=== PATIENT | male | born 1975 | race Caucasian/White ===

== ENCOUNTER 2016-10-28 15:31 | Inpatient (IN) | payer MEDICAID, OTHER ==
[2016-10-28] MEDS ORDERED: Acetaminophen/HYDROcodone 325-5 MG Tab PO PRN ×2 (15:51→16:59)
[2016-10-28] MEDS: Sodium Chloride 0.9% 1,000 ML IV SCH (17:39)
[2016-10-28] MEDS: Vancomycin 1 GM, Vancomycin 250 MG in Sodium Chloride 0.9% 250 ML IV SCH (17:39)
[2016-10-29] MEDS: Sodium Chloride 0.9% 1,000 ML IV SCH (03:41)
[2016-10-29] MEDS: Vancomycin 1 GM, Vancomycin 250 MG in Sodium Chloride 0.9% 250 ML IV SCH (06:16)
[2016-10-29] MEDS ORDERED: Enoxaparin 40 MG/0.4 ML Syringe SUBCUT SCH (09:00)
[2016-10-29 09:15] VITALS: BP 107/57
--- NOTE | 2016-10-29 09:56 | PCM.PN ---
- General Info Date of Service: 10/29/16 Admission Dx/Problem (Free Text): pt with infection abdominal wall with cellulitis and suspect MRSA cultures pending and rapid screening for mrsa pending pt has a good response to Vancao and request discharge plan discharge with out patient IV Vanco q 12 hrs. to be dosed by pharmacey instructed pt in friend in wound packing with 1/4 inch Nugauze follow up on Wednesday give vicodine for pain Functional Status: Reports: pain controlled - Review of Systems Skin: Reports: other (pain improved ) - Patient Data Vitals - most recent: Last Vital Signs Temp 98.1 F 10/29/16 09:00 Pulse 84 10/29/16 09:00 Resp 12 10/29/16 09:00 BP 107/57 L 10/29/16 09:00 Pulse Ox 98 10/29/16 09:00 Weight - most recent: 82.236 kg I&O - last 24 hours: Intake & Output 10/28/16 10/29/16 10/29/16 23:59 07:59 15:59 Intake Total 240 1490 Output Total 500 Balance 240 990 Lab Results last 24 hrs: Laboratory Results - last 24 hr 10/28/16 10/28/16 10/29/16 Range/Units 16:30 16:30 06:28 WBC 11.06 H 8.52 (4.23-9.07) K/mm3 RBC 5.24 5.02 (4.63-6.08) M/mm3 Hgb 15.2 14.5 (13.7-17.5) gm/L Hct 46.3 45.1 (40.1-51.0) % MCV 88.4 89.8 (79.0-92.2) fl MCH 29.0 28.9 (25.7-32.2) pg MCHC 32.8 32.2 (32.2-35.5) g/dl RDW Std Deviation 44.4 H 46.1 H (35.1-43.9) fL Plt Count 266 244 (163-337) K/mm3 MPV 9.8 10.0 (9.4-12.3) fl Neut % (Auto) 68.6 H (34.0-67.9) % Lymph % (Auto) 19.3 L (21.8-53.1) % [place] % (Auto) 10.3 (5.3-12.2) % Eos % (Auto) 1.2 (0.8-7.0) Baso % (Auto) 0.4 (0.1-1.2) % Neut # (Auto) 7.60 H (1.78-5.38) K/mm3 Lymph # (Auto) 2.13 (1.32-3.57) K/mm3 [place] # (Auto) 1.14 H (0.30-0.82) K/mm3 Eos # (Auto) 0.13 (0.04-0.54) K/mm3 Baso # (Auto) 0.04 (0.01-0.08) K/mm3 Sodium 139 (136-145) mEq/L Potassium 3.7 (3.5-5.1) mEq/L Chloride 103 (98-107) mEq/L Carbon Dioxide 23 (21-32) mEq/L Anion Gap 16.7 H (5-15) BUN 15 (7-18) mg/dL Creatinine 1.3 (0.7-1.3) mg/dL Est Cr Clr Drug Dosing 74.02 mL/min Estimated GFR (MDRD) > 60 (>60) mL/min BUN/Creatinine Ratio 11.5 L (14-18) Glucose 145 H (74-106) mg/dL Calcium 8.7 (8.5-10.1) mg/dL Total Bilirubin 0.2 (0.2-1.0) mg/dL AST 10 L (15-37) U/L ALT 21 (16-63) U/L Alkaline Phosphatase 68 (46-116) U/L Total Protein 7.6 (6.4-8.2) g/dl Albumin 3.8 (3.4-5.0) g/dl Globulin 3.8 gm/dL Albumin/Globulin Ratio 1.0 (1-2) Med Orders - Current: Current Medications Hydrocodone Bitart/Acetaminophen ([place] 325-5 Mg) 1 tab PO QID PRN PRN Reason: Pain Last Admin: 10/28/16 20:23 Dose: 1 tab Enoxaparin Sodium (Lovenox) 40 mg SUBCUT DAILY JESSE Last Admin: 10/29/16 08:36 Dose: Not Given Sodium Chloride (Normal Saline) 1,000 mls @ 100 mls/hr IV ASDIRECTED [facility] Last Admin: 10/29/16 03:41 Dose: 100 mls/hr Vancomycin HCl 1 gm/Vancomycin HCl 250 mg/ Sodium Chloride 250 mls @ 166 mls/ hr IV Q12H [facility] Last Admin: 10/29/16 06:16 Dose: 166 mls/hr Vancomycin HCl (Pharmacy To Dose - Vancomycin) 0 dose .XX ASDIRECTED PRN PRN Reason: RX TO DOSE VANCOMYCIN Discontinued Medications Hydrocodone Bitart/Acetaminophen ([place] 325-5 Mg) 1 tab PO Q8H PRN PRN Reason: Pain - Exam General: alert, oriented Abdomen: other (open wound in the abdomen less drainage and less tenderness and cellulitis receeding ) - Problem List Review Problem List Initiated/Reviewed/Updated: Yes - My Orders Last 24 Hours: My Active Orders 10/28/16 15:39 Patient Status [ADT] Routine 10/28/16 15:49 Up ad Luzmaria [RC] ASDIRECTED Blood Culture x2 Reflex Set [OM.PC] Stat 10/28/16 15:51 Antiembolic Devices [RC] QSHIFT SCD [Sequential Compression Device] [OM.PC] Routine 10/28/16 16:00 Sodium Chloride 0.9% [Normal Saline] 1,000 ml IV ASDIRECTED Vancomycin Pharmacy to Dose [Pharmacy to Dose - Vancomycin] 0 dose .XX ASDIRECTED PRN 10/28/16 16:14 CULTURE BLOOD [BC] Stat 10/28/16 16:30 CULTURE BLOOD [BC] Stat 10/28/16 16:59 Acetaminophen/HYDROcodone [[place] 325-5 MG] 1 tab PO QID PRN 10/28/16 17:49 CULTURE MRSA SURVEY [RM] Routine 10/28/16 18:00 Vancomycin 1 gm Vancomycin 250 mg Sodium Chloride 0.9% [Normal Saline] 250 ml IV Q12H 10/28/16 Dinner Regular Diet [DIET] 10/29/16 09:00 Enoxaparin [Lovenox] 40 mg SUBCUT DAILY 10/29/16 09:49 Code Status [Resuscitation Status] Routine 10/30/16 05:30 VANCOMYCIN TROUGH [CHEM] Timed 11/02/16 07:00 CBC W/O DIFF,HEMOGRAM [HEME] MOTH@0700 11/05/16 07:00 CBC W/O DIFF,HEMOGRAM [HEME] MOTH@0700 11/09/16 07:00 CBC W/O DIFF,HEMOGRAM [HEME] MOTH@69911/12/16 07:00 CBC W/O DIFF,HEMOGRAM [HEME] MOTH@69911/16/16 07:00 CBC W/O DIFF,HEMOGRAM [HEME] MOTH@699 - Plan Plan:: as per note at the beingdischarge note dictated of this note
[2016-10-29] MEDS ORDERED: HYDROmorphone 0.5 MG/0.5 ML Syringe IVPUSH ONE (10:09)
--- NOTE | 2016-10-30 08:44 | DISCH ---
ADMISSION DATE: 10/28/2016 DISCHARGE DATE: 10/29/2016 HISTORY: The patient is a 40-year-old who presented to the clinic with an abdominal wall infection that started last Wednesday and he came into the outpatient clinic on Wednesday, where they started him on . No cultures were obtained. They began to have a spreading cellulitis, he says on the abdomen from the central area of infection which was initially a pimple like. On Wednesday evening, has continued to spread and enlarge. It was painful. He was supposed to see me on Wednesday, but for some unknown reason came in yesterday on Wednesday a week after the infection started. Patient's past medical history is that of good health. MEDICATIONS: None. SOCIAL HISTORY: No known allergies. He does smoke marijuana. FAMILY HISTORY: Negative. REVIEW OF SYSTEMS: No chest pain, shortness of breath, cough, hoarseness, wheezing, fainting, weakness, numbness, or convulsions. PHYSICAL EXAMINATION: GENERAL: Alert and cooperative male. EYES, EARS, NOSE, AND THROAT: Negative. NECK: Supple. LUNGS: Clear. HEART: Tones are regular rate. Low sinus tachycardia noted. ABDOMEN: A central area of necrosis of the skin above the umbilicus in the midline measuring approximately 2 cm and from that area for about 10 cm area of cellulitis. There is also another wound at the belt line which shows eschar and scabbing. This area was opened, cultures obtained and necrotic tissue removed and it had little microabscesses in the subcuticular tissue. HOSPITAL COURSE: Patient after undergoing this in the clinic, was sent to the hospital for IV antibiotics. Next day, patient was doing much better, pain is receding and the cellulitis receding, discharge was minimal. The patient was requested discharge and was elected to discharge him for outpatient antibiotic treatment vancomycin 1250 mg twice a day and with troughs to be done tomorrow and pharmacy to adjust dose as indicated. The dressing changes will be done by his friend a quarter- inch Nu Gauze packing after shower once a day. He will be given some Vicodin 5/325 one p.o. q.i.d. p.r.n. pain. This is to note that the patient when he was seen in the clinic on Wednesday, he was started on but in spite of this , this infection persisted and enlarged. ASSESSMENT: Failure infection of the abdominal wall, suspect MRSA with failure of outpatient treatment. CONDITION: Improved. PLAN: Regular diet. No work. Medications as stated above. Appointment to see me on Wednesday. FINAL DIAGNOSIS: DISCHARGE MEDICATIONS: Medications as stated above. DIET: Regular. ACTIVITY: No work. FOLLOW-UP: Appointment to see Dr. Richmond on Wednesday. CONDITION ON DISCHARGE: MMODAL /[id number]
== END 2016-10-29 12:20 | disposition home or self-care (01) | DRG 603 ==
LOC: JD.MS 15:31 → OBSVTOIN 15:31
PROVIDERS: ADMIT Surgery; ATTEND Surgery
DX: L03.311 Cellulitis of abdominal wall (principal); A49.02 Methicillin resistant Staphylococcus aureus infection, unspecified site
CPT/HCPCS: 36415; 80053; 85025; 85027; 87040; 87070; 87077; 87186; A9270-GY; J1170; J3370; J7040; J7050

== ENCOUNTER 2017-08-19 16:43 | Inpatient (IN) | payer SELFPAY ==
[2017-08-19] MEDS ORDERED: Lidocaine 1%/Sod Bicarbonate in NS 8.4% 1 ML Syringe PRN (16:56)
[2017-08-19] MEDS ORDERED: Sodium Chloride 0.9% 10 ML Syringe FLUSH PRN ×2 (16:56→18:21)
[2017-08-19] MEDS ORDERED: Vancomycin 1 GM, Vancomycin 500 MG in Sodium Chloride 0.9% 500 ML IV ONE (17:00)
[2017-08-19] MEDS ORDERED: Lactated Ringers 1,000 ML IV SCH (17:00)
--- NOTE | 2017-08-19 17:01 | PCM.PREANE ---
Preanesthetic Assessment - Anesthesia/Transfusion/Family Hx Anesthesia History: Prior Anesthesia Without Reaction Family History of Anesthesia Reaction: No Transfusion History: No Prior Transfusion(s) Intubation History: Unknown - Review of Systems General: No Symptoms, Chills Pulmonary: No Symptoms (smoker: 1.5packs/day times 30 years/Marijuana used last night) Cardiovascular: No Symptoms, Dyspnea on Exertion Gastrointestinal: No Symptoms (GERD), Decreased Appetite Neurological: No Symptoms Other: Reports: None - Physical Assessment NPO Status Date: 08/19/17 NPO Status Time: 06:00 Pulse: 98 O2 Sat by Pulse Oximetry: 96 Respiratory Rate: 16 Blood Pressure: 128/77 Vital Signs: Last Vital Signs Temp 36.1 C 08/19/17 16:48 Pulse 98 08/19/17 16:48 Resp 16 08/19/17 16:48 BP 128/77 08/19/17 16:48 Pulse Ox 96 08/19/17 16:48 Height: 1.73 m Weight: 83.915 kg ASA Class: 2E Mental Status: Alert & Oriented x3 Airway Class: Mallampati = 3 Dentition: Reports: Broken Tooth/Teeth, Missing Tooth/Teeth, Caries Thyro-Mental Finger Breadths: 3 Mouth Opening Finger Breadths: 3 ROM/Head Extension: Full Lungs: Clear to Auscultation, Normal Respiratory Effort Cardiovascular: Regular Rate, Regular Rhythm, No Murmurs - Allergies Allergies/Adverse Reactions: Allergies Allergy/AdvReac Type Severity Reaction Status Date / Time No Known Allergies Allergy Verified 08/19/17 16:58 - Anesthesia Plan Pre-Op Medication Ordered: None - Acknowledgements Anesthesia Type Planned: MAC Pt an Appropriate Candidate for the Planned Anesthesia: Yes Alternatives and Risks of Anesthesia Discussed w Pt/Guardian: Yes Pt/Guardian Understands and Agrees with Anesthesia Plan: Yes PreAnesthesia Questionnaire HEENT History: Reports: Sinusitis Other HEENT History: Asthma as a child; Now takes Equate allergy pill daily as Pt. suffers from seasonal allergies. Respiratory History: Reports: Asthma Other Respiratory History: Asthma as a child and now takes an Equate allergy pill daily as Pt. suffers from seasonal allergies. Musculoskeletal History: Reports: Arthritis Other Musculoskeletal History: has arthritis in his hands and feet - Past Surgical History HEENT Surgical History: Reports: Adenoidectomy, Tonsillectomy Other HEENT Surgeries/Procedures: t&A at age 12 Respiratory Surgical History: Reports: None Musculoskeletal Surgical History: Reports: None - SUBSTANCE USE Smoking Status *Q: Current Every Day Smoker Tobacco Use Within Last Twelve Months: Cigarettes Recreational Drug Use History: Yes Recreational Drug Type: Reports: Marijuana/Hashish - HOME MEDS Home Medications: Home Meds Omeprazole Magnesium [Prilosec Otc] 1 tab PO DAILY PRN 08/19/17 [History] oxyCODONE HCl/Acetaminophen [Percocet 5-325 mg Tablet] 1 - 2 tab PO Q6H PRN [History] - CURRENT (IN HOUSE) MEDS Current Meds: Current Medications Lactated Ringer's (Ringers, Lactated) 1,000 mls @ 125 mls/hr IV ASDIRECTED JESSE Vancomycin HCl 1 gm/Vancomycin HCl 500 mg/ Sodium Chloride 500 mls @ 333 mls/ hr IV ASDIRECTED JESSE Lidocaine/Sodium Bicarbonate (Buffered Lidocaine 1% In Ns 8.4%) 0.25 ml .XX ONETIME PRN PRN Reason: Prior to IV Start Sodium Chloride (Saline Flush) 10 ml FLUSH ASDIRECTED PRN PRN Reason: Keep Vein Open
[2017-08-19] MEDS ORDERED: Vancomycin 1 GM SDV ONE ×2 (17:21→17:30)
[2017-08-19] MEDS ORDERED: Midazolam 1 MG/ML 2 ML SDV ONE (17:27)
[2017-08-19] MEDS ORDERED: Lidocaine 1% 6 ML ONE (17:27)
[2017-08-19] MEDS ORDERED: fentaNYL 100 MCG/2 ML SDV ONE (17:27)
[2017-08-19] MEDS ORDERED: Propofol 200 MG/20 ML SDV ONE ×2 (17:27→18:17)
[2017-08-19] MEDS ORDERED: Lidocaine 1% 30 ML SDV ONE (17:47)
[2017-08-19] MEDS ORDERED: HYDROmorphone 0.5 MG/0.5 ML Syringe IVPUSH PRN ×2 (17:58→18:26)
[2017-08-19] MEDS ORDERED: Midazolam 1 MG/ML 2 ML SDV IVPUSH PRN (17:58)
[2017-08-19] MEDS ORDERED: Ondansetron 4 MG/2 ML SDV IVPUSH PRN ×2 (17:58→18:27)
[2017-08-19] MEDS ORDERED: fentaNYL 100 MCG/2 ML SDV IVPUSH PRN (17:58)
[2017-08-19] MEDS ORDERED: Acetaminophen/HYDROcodone 325-5 MG Tab PO PRN (18:27)
[2017-08-19] MEDS ORDERED: Vancomycin 500 MG SDV IV SCH (18:30)
[2017-08-19] MEDS ORDERED: Lactated Ringers 1,000 ML ONE ×2 (18:33)
[2017-08-19] MEDS ORDERED: Omeprazole 20 MG Cap.CR PO PRN (18:34)
--- NOTE | 2017-08-19 18:35 | PCM.POSTAN ---
POST ANESTHESIA ASSESSMENT - MENTAL STATUS Mental Status: Alert - VITAL SIGNS Pulse Rate: 80 SaO2: 94 Resp Rate: 15 Blood Pressure: 118/72 Temperature: 36.6 C - RESPIRATORY Respiratory Status: Respiratory Rate WNL, Airway Patent, O2 Saturation Stable - CARDIOVASCULAR CV Status: Pulse Rate WNL, Blood Pressure Stable - GASTROINTESTINAL GI Status: No Symptoms - POST OP HYDRATION Hydration Status: Adequate & Stable
--- NOTE | 2017-08-19 18:35 | PCM.OPNOTE ---
- General Post-Op/Procedure Note Date of Surgery/Procedure: 08/19/17 Operative Procedure(s): debride wound left groin Pre Op Diagnosis: MRSA infection of left groin Post-Op Diagnosis: Same Anesthesia Technique: MAC Primary Surgeon: Dmitry Richmond EBL in mLs: 15 Complications: None Condition: Good
[2017-08-20] MEDS ORDERED: Vancomycin 1 GM, Vancomycin 250 MG in Sodium Chloride 0.9% 250 ML IV SCH (06:00)
[2017-08-20] MEDS ORDERED: Pantoprazole 40 MG Tab.CR PO PRN (07:03)
--- NOTE | 2017-08-20 07:47 | OR ---
DATE OF OPERATION: 08/19/2017 SURGEON: Dmitry Richmond MD PREOPERATIVE DIAGNOSIS: MRSA infection left groin. POSTOPERATIVE DIAGNOSIS: MRSA infection left groin. OPERATION PERFORMED: Debridement. ANESTHESIA: Under IV sedation local anesthetic 1% Xylocaine. FINDINGS: Area of infection involving the subcuticular tissue was debrided on the left side. There was pockets of pus that were opened up in the subcuticular tissue. The infection did not extend into the fascia. INDICATIONS: The patient was being treated with MRSA infection in the outpatient setting. Had undergone I and D of an abscess yesterday, placed on antibiotics, but the response was minimal and it was indicated, he had failed outpatient treatment for MRSA infection and that he needed further debridement and hospitalization and IV antibiotics. DESCRIPTION OF PROCEDURE: The patient was taken to the operating room, placed in the supine position, connected to monitoring equipment, given IV sedation. The left groin area dressing was removed and the hair was clipped and the area prepped with Betadine, draped off in a sterile fashion. 1% Xylocaine was infiltrated in the skin around the previous incision. This was opened up further for about 8 to 9 cm in length. Dissection was carried down into the subcuticular tissue in the areas. Pockets of pus were drained. It was extended posteriorly as far as the subcuticular tissue extended following the infection, but it did not extend into the fascia. The area was then irrigated with Pulsavac and then left open and packed with Kerlix and soaked in Betadine. Sterile dressing placed. The patient tolerated the procedure and sent to recovery room in a stable condition. ESTIMATED BLOOD LOSS: Intraoperative blood loss 20 mL. MMODAL /[id number]
--- NOTE | 2017-08-20 10:13 | PCM.SURGPN ---
- General Info Date of Service: 08/20/17 - Patient Data Vitals - Most Recent: Last Vital Signs Temp 98.1 F 08/20/17 07:58 Pulse 77 08/20/17 07:58 Resp 16 08/20/17 07:58 BP 126/73 08/20/17 07:58 Pulse Ox 97 08/20/17 07:58 Weight - Most Recent: 86.954 kg I&O - Last 24 Hours: Intake & Output 08/19/17 08/20/17 08/20/17 23:59 07:59 15:59 Intake Total 1250 Balance 1250 Lab Results Last 24 Hrs: Laboratory Results - last 24 hr 08/19/17 08/20/17 08/20/17 Range/Units 20:55 06:10 06:10 WBC 10.79 H (4.23-9.07) K/mm3 RBC 4.51 L (4.63-6.08) M/mm3 Hgb 13.2 L (13.7-17.5) gm/L Hct 40.4 (40.1-51.0) % MCV 89.6 (79.0-92.2) fl MCH 29.3 (25.7-32.2) pg MCHC 32.7 (32.2-35.5) g/dl RDW Std Deviation 44.1 H (35.1-43.9) fL Plt Count 282 (163-337) K/mm3 MPV 9.8 (9.4-12.3) fl Neut % (Auto) 55.1 (34.0-67.9) % Lymph % (Auto) 29.7 (21.8-53.1) % [place] % (Auto) 10.1 (5.3-12.2) % Eos % (Auto) 4.4 (0.8-7.0) Baso % (Auto) 0.4 (0.1-1.2) % Neut # (Auto) 5.96 H (1.78-5.38) K/mm3 Lymph # (Auto) 3.20 (1.32-3.57) K/mm3 [place] # (Auto) 1.09 H (0.30-0.82) K/mm3 Eos # (Auto) 0.47 (0.04-0.54) K/mm3 Baso # (Auto) 0.04 (0.01-0.08) K/mm3 Manual Slide Review Normal smear Sodium 143 142 (136-145) mEq/L Potassium 3.7 4.2 (3.5-5.1) mEq/L Chloride 107 108 H (98-107) mEq/L Carbon Dioxide 25 26 (21-32) mEq/L Anion Gap 14.7 12.2 (5-15) BUN 12 10 (7-18) mg/dL Creatinine 1.0 0.9 (0.7-1.3) mg/dL Est Cr Clr Drug Dosing 92.15 102.39 mL/min Estimated GFR (MDRD) > 60 > 60 (>60) mL/min BUN/Creatinine Ratio 12.0 L 11.1 L (14-18) Glucose 99 103 (74-106) mg/dL Calcium 8.3 L 8.2 L (8.5-10.1) mg/dL Total Bilirubin 0.2 (0.2-1.0) mg/dL AST 16 (15-37) U/L ALT 22 (16-63) U/L Alkaline Phosphatase 45 L (46-116) U/L Total Protein 6.4 (6.4-8.2) g/dl Albumin 2.8 L (3.4-5.0) g/dl Globulin 3.6 gm/dL Albumin/Globulin Ratio 0.8 L (1-2) Med Orders - Current: Current Medications Hydrocodone Bitart/Acetaminophen ([place] 325-5 Mg) 1 tab PO Q4H PRN PRN Reason: Pain Heparin Sodium (Porcine) (Heparin Sodium) 5,000 units SUBCUT Q12HR [facility] Hydromorphone HCl (Dilaudid) 0.5 mg IVPUSH Q2H PRN PRN Reason: Pain Last Admin: 08/20/17 10:02 Dose: 0.5 mg Vancomycin HCl 1 gm/Vancomycin HCl 250 mg/ Sodium Chloride 250 mls @ 166.667 mls/hr IV Q12H JESSE Last Admin: 08/20/17 06:09 Dose: 166.667 mls/hr Ondansetron HCl (Zofran) 4 mg IVPUSH Q8H PRN PRN Reason: Nausea Pantoprazole Sodium (Protonix) 40 mg PO DAILY PRN PRN Reason: Heartburn Sodium Chloride (Saline Flush) 10 ml FLUSH ASDIRECTED PRN PRN Reason: Keep Vein Open Discontinued Medications Fentanyl (Sublimaze) Confirm Administered Dose 100 mcg .ROUTE .STK-MED ONE Stop: 08/19/17 17:28 Fentanyl (Sublimaze) 50 mcg IVPUSH Q5M PRN PRN Reason: Pain Hydromorphone HCl (Dilaudid) 0.5 mg IVPUSH Q15M PRN PRN Reason: severe pain Lactated Ringer's (Ringers, Lactated) 1,000 mls @ 125 mls/hr IV ASDIRECTED JESSE Vancomycin HCl 1 gm/Vancomycin HCl 500 mg/ Sodium Chloride 500 mls @ 333 mls/ hr IV ONETIME ONE Stop: 08/19/17 18:30 Last Admin: 08/19/17 18:50 Dose: Not Given Lidocaine HCl (Xylocaine-Mpf 1%) Confirm Administered Dose 6 mls @ as directed .ROUTE .STK-MED ONE Stop: 08/19/17 17:28 Lactated Ringer's (Ringers, Lactated) Confirm Administered Dose 1,000 mls @ as directed .ROUTE .STK-MED ONE Stop: 08/19/17 18:34 Lactated Ringer's (Ringers, Lactated) Confirm Administered Dose 1,000 mls @ as directed .ROUTE .STTumblr-MED ONE Stop: 08/19/17 18:34 Lidocaine HCl (Xylocaine-Mpf 1%) Confirm Administered Dose 30 ml .ROUTE .STTumblr- MED ONE Stop: 08/19/17 17:48 Last Admin: 08/19/17 18:00 Dose: 16 ml Lidocaine/Sodium Bicarbonate (Buffered Lidocaine 1% In Ns 8.4%) 0.25 ml .XX ONETIME PRN PRN Reason: Prior to IV Start Midazolam HCl (Versed 1 Mg/Ml) Confirm Administered Dose 2 mg .ROUTE .STK-MED ONE Stop: 08/19/17 17:28 Midazolam HCl (Versed 1 Mg/Ml) 2 mg IVPUSH ONETIME PRN PRN Reason: Sedation Omeprazole (Omeprazole) 20 mg PO DAILY PRN PRN Reason: Heartburn Ondansetron HCl (Zofran) 4 mg IVPUSH ONETIME PRN PRN Reason: Nausea/Vomiting Propofol (Diprivan 20 Ml) Confirm Administered Dose 200 mg .ROUTE .STK-MED ONE Stop: 08/19/17 17:28 Propofol (Diprivan 20 Ml) Confirm Administered Dose 200 mg .ROUTE .[facility]-MED ONE Stop: 08/19/17 18:18 Sodium Chloride (Saline Flush) 10 ml FLUSH ASDIRECTED PRN PRN Reason: Keep Vein Open Vancomycin HCl (Vancomycin) Confirm Administered Dose 1 gm .ROUTE .ST-MED ONE Stop: 08/19/17 17:22 Vancomycin HCl (Vancomycin) Confirm Administered Dose 1 gm .ROUTE .[facility]-MED ONE Stop: 08/19/17 17:31 Vancomycin HCl (Vancomycin) 1,258.725 mg 15 mg/kg (1258.725 mg) IV Q12H [facility] Last Admin: 08/19/17 20:52 Dose: Not Given - Problem List Review Problem List Initiated/Reviewed/Updated: Yes - My Orders Last 24 Hours: Active Orders 24 hr Category Date Time Status Pantoprazole [ProTONIX] Med 08/20/17 07:03 Active 40 mg PO DAILY PRN Vancomycin 1 gm Med 08/20/17 06:00 Active Vancomycin 250 mg Sodium Chloride 0.9% [Normal Saline] 250 ml IV Q12H Resuscitation Status Routine Resus Stat 08/19/17 20:08 Ordered Medication Orders Hydrocodone Bitart/Acetaminophen ([place] 325-5 Mg) 1 tab PO Q4H PRN PRN Reason: Pain Heparin Sodium (Porcine) (Heparin Sodium) 5,000 units SUBCUT Q12HR [facility] Hydromorphone HCl (Dilaudid) 0.5 mg IVPUSH Q2H PRN PRN Reason: Pain Last Admin: 08/20/17 10:02 Dose: 0.5 mg Vancomycin HCl 1 gm/Vancomycin HCl 250 mg/ Sodium Chloride 250 mls @ 166.667 mls/hr IV Q12H JESSE Last Admin: 08/20/17 06:09 Dose: 166.667 mls/hr Ondansetron HCl (Zofran) 4 mg IVPUSH Q8H PRN PRN Reason: Nausea Pantoprazole Sodium (Protonix) 40 mg PO DAILY PRN PRN Reason: Heartburn Sodium Chloride (Saline Flush) 10 ml FLUSH ASDIRECTED PRN PRN Reason: Keep Vein Open - Plan Plan (Free Text/Narrative):: discharge dictated AMISHA
--- NOTE | 2017-08-20 11:21 | PCM48HPAN ---
Post Anesthesia Note - EVALUATION WITHIN 48HRS OF ANESTHETIC Vital Signs in Normal Range: Yes Patient Participated in Evaluation: Yes Respiratory Function Stable: Yes Airway Patent: Yes Cardiovascular Function Stable: Yes Hydration Status Stable: Yes Pain Control Satisfactory: Yes Nausea and Vomiting Control Satisfactory: Yes Mental Status Recovered: Yes
[2017-08-20 12:50] VITALS: BP 110/55
[2017-08-20] MEDS ORDERED: Heparin Sodium 5,000 Units/ML Vial SUBCUT SCH (20:00)
[2017-08-20] MEDS ORDERED: Sulfamethoxazole/Trimethoprim 800-160 MG Tab PO SCH (21:00)
--- NOTE | 2017-08-20 23:48 | DISCH ---
ADMISSION DATE: 08/19/2017 DISCHARGE DATE: 08/20/2017 HISTORY OF PRESENT ILLNESS: This is a 41-year-old male who presented on Wednesday with an infection in the right groin, which underwent incision and drainage and his cultures were obtained and he was started on antibiotics of Septra. He had previous to this a MRSA infection. He returned to the clinic where cellulitis seemed to worsen. He was not feeling well and examination of the wound showed some pus pockets still in the depth of the wound. The patient was then judged to have a failure of outpatient treatment of a MRSA infection and he was then brought to the operating room for definitive treatment under IV sedation. He was placed on vancomycin pre and postoperatively. The patient states now that he is feeling much better and less pain in the incision. Examination of the wound shows it to be granulating in and free of any necrotic areas or pus. HOSPITAL COURSE: The patient improved over the next 24 hours with IV vancomycin and the wound was healing, cellulitis controlled. Cultures were having been obtained. Sensitivities were to both vancomycin and clindamycin and Septra. He was felt to have reached maximum hospital benefit, was discharged with arrangements for wound packing with 0.5 inch Nu Gauze. Regular diet. He was discharged for followup in the clinic in 1 week and discharged with Septra and pain medication. He will take that 1 b.i.d. DISCHARGE DIAGNOSIS: MRSA infection status post debridement in the operating room. CONDITION ON DISCHARGE: Improved, on a regular diet, no work, and wound care as described above. DISCHARGE MEDICATIONS: Per medication reconciliation form and pain medication. FINAL DIAGNOSIS: DIET: ACTIVITY: FOLLOW-UP: DENICE /[id number]
== END 2017-08-20 15:46 | disposition home or self-care (01) | DRG 581 ==
LOC: JD.ED 16:43 → JD.SDS 16:53 → JD.MS 18:31
PROVIDERS: ADMIT Surgery; ATTEND Surgery
PROC: 0YB63ZZ Excision of Left Inguinal Region, Percutaneous Approach (ICD-10-PCS; principal; 2017-08-19)
DX: L02.214 Cutaneous abscess of groin (principal); B95.62 Methicillin resistant Staphylococcus aureus infection as the cause of diseases classified elsewhere; J30.2 Other seasonal allergic rhinitis; F17.210 Nicotine dependence, cigarettes, uncomplicated
CPT/HCPCS: 00400; 36415; 80048; 80053; 85025; 99284; J1170; J2250; J2704; J3010; J3370; J7050; J7120